=== PATIENT | female | born 1970 | race Caucasian/White ===

== ENCOUNTER 2021-06-18 16:05 | Outpatient (REF) | payer OTHER, SELFPAY ==
[2021-06-20 00:46] LABS: COVID-19 RT-PCR UVMMC Result Negative (Negative)
== END 2021-06-18 16:06 | disposition home or self-care (01) ==
LOC: LBN 16:05
PROVIDERS: PCP Orthopaedic Surgery; Visit Provider Physician Assistant
DX: Z20.822 Contact with and (suspected) exposure to COVID-19 (principal); J02.9 Acute pharyngitis, unspecified
CPT/HCPCS: U0003

== ENCOUNTER 2022-03-06 00:12 | Outpatient (CLI) | payer OTHER, SELFPAY ==
--- NOTE | 2022-03-06 15:00 | ETT_ITS ---
APPROVED REPORT Exam: Exercise Treadmill Patient Location: Out-Patient Room/Bed: Stress Nurse: Sujatha Tsai RN Ordering Provider:DARI ZAMBRANO, Contact Number: [phone] BMI: 20.19 Baseline Rhythm: Sinus Rhythm Comment: Baseline t-wave inversions in V2 Indications: Atypical chest pain Medical History Medical History: heart murmur, vertigo Cardiac Medications: none Allergies: sulfa antibiotics Cardiac Risk Factors: family history Previous Cardiac Procedures: none Pretest Chest Pain Characteristics: none Exercise History: Physically active Physical Disabilities: none Lung Sounds: clear Heart Sounds: regular, murmur (left 6th ics) Stress Test Details Test: Exercise stress testing was performed using a Shola protocol. Rest Stress HR Resting HR Supine: 61 bpm Max Heart Rate (APMHR): 169 bpm Resting HR Standin bpm Target HR (85% APMHR): 143 bpm Max HR Achieved: 164 bpm % of APMHR: 97 Recovery HR: 79 bpm HR response to stress: Normal HR response to stress BP Resting BP Supine: 118/64 mmHg Resting BP Standin/72 mmHg Max BP: 138/72 mmHg Recovery BP: 114/70 mmHg BP response to stress: Normal blood pressure response to stress. ECG Resting ECG: Sinus Rhythm Ectopy: none Comment: inverted t wave in v2 Stress ECG: Sinus Tachycardia ST Change: No significant ST segment changes noted Arrhythmia: rare PAC, rare PVC Recovery ECG: Clear, Sinus Rhythm Recovery ST Change: No significant ST segment changes noted Recovery Arrhythmia: none Clinical Reason for Termination: Stopped by RN due to significant artifact and difficulty with interpretting E KG Stress Symptoms: None Exercise duration: 9 min29 sec Highest Stage Reached: Stage 4: 4.2 mph at 16% grade. Exercise capacity: 10.95 METs De Souza Treadmill Score: 8.1 Rate Pressure Product: [id number] Stress ECG Conclusion 1. The resting electrocardiogram showed nondiagnostic anterior T abnormalities 2. Patient exercised on the Shola protocol and completed a workload of 10.95 METS, stopping due to fa tigue 3. Normal heart rate and blood pressure response to exercise. Patient achieved 97% of predicted hear t rate for age 4. There was no electrocardiographic evidence of myocardial ischemia 5. There were no significant dysrhythmias De Souza Treadmill Score is 8.1 which is Low risk. Stress Test Summary STAGE Time (mins) Speed (mph) Grade (%) HR BP SYMPTOMS METS Supine 61 118/64 SP02 99% Standing 62 120/72 SP02 98% 1 3 1.7 10 112 118/68 SP02 98% 4.6 2 6 2.5 12 141 122/70 SP02 81% 7 3 9 3.4 14 156 132/74 SP02 87% 10.2 4 12 4.2 16 160 12.9 1 min recovery 114 128/58 SP02 97% 3 min recovery 79 138/72 SP02 97% 6 min recovery 79 114/70 SP02 97%
== END 2022-03-06 00:32 ==
PROVIDERS: PCP Orthopaedic Surgery; Visit Provider Nurse Practitioner
DX: R07.89 Other chest pain (principal)
CPT/HCPCS: 93017

== ENCOUNTER 2024-05-20 01:57 | Outpatient (RCR) | payer OTHER, SELFPAY ==
[2024-05-20] MEDS: Normal Saline Flush 10 ML SYR IVP (08:08)
[2024-05-20 08:39] LABS: Abs Immature Grans 0.01 10^3/uL (0.0-0.06); Absolute Basophil Count 0.05 10^3/uL (0.0-0.2); Absolute Eosinophil Count 0.05 10^3/uL (0.0-0.7); Absolute Lymphocyte Count 1.47 10^3/uL (1.2-3.4); Absolute Monocyte Count 0.56 10^3/uL (0.1-0.8); Absolute Neutrophil Count 2.55 10^3/uL (1.2-6.7); Basophils % 1.1 %; Eosinophils % 1.1 %; HCT 30.6 % (36.0-46.0); HGB 10.2 g/dL (11.2-15.7); Immature Grans % 0.2 %; Lymphocytes % 31.3 %; MCH 30.1 pg (27.0-33.0); MCHC 33.3 % (32.0-36.0); MCV 90 fL (80-95); MPV 9.9 fL (8.0-11.0); Monocytes % 11.9 %; Neutrophils % 54.4 %; Platelet Count 274 10^3/uL (130-400); RBC 3.39 10^6/uL (3.93-5.22); RDW 13.7 % (11.7-14.6); WBC 4.69 10^3/uL (4.4-10.8)
[2024-05-20 08:54] LABS: ALT 95 U/L (14-59); AST 34 U/L (15-37); Albumin 3.6 g/dL (3.4-5.0); Alkaline Phosphatase 72 U/L (46-116); Anion Gap 7.1 mmol/L (3-11); BUN 13 mg/dL (7-18); Bilirubin, Total 0.59 mg/dL (0.2-1.0); CO2 27.9 mmol/L (21.0-32.0); CREATININE 0.9 mg/dL (0.55-1.02); Calcium 8.8 mg/dL (8.5-10.1); Chloride 107 mmol/L (98-107); Estimated GFR 75.97 (mL/min/1.73m2); Glucose 95 mg/dL (74-106); Potassium 3.7 mmol/L (3.5-5.1); Sodium 142 mmol/L (136-145); Total Protein 6.7 g/dL (6.4-8.2)
== END 2024-06-04 23:59 | disposition home or self-care (01) ==
LOC: INF 01:57
PROVIDERS: PCP Nurse Practitioner; Visit Provider Internal Medicine Hematology & Oncology
DX: C50.911 Malignant neoplasm of unspecified site of right female breast (principal); Z45.2 Encounter for adjustment and management of vascular access device
CPT/HCPCS: 36591; 80053; 85025

== ENCOUNTER 2024-07-01 02:34 | Outpatient (RCR) | payer OTHER, SELFPAY ==
[2024-06-10 09:02] LABS: Abs Immature Grans 0.01 10^3/uL (0.0-0.06); Absolute Basophil Count 0.03 10^3/uL (0.0-0.2); Absolute Lymphocyte Count 1.27 10^3/uL (1.2-3.4); Absolute Neutrophil Count 2.36 10^3/uL (1.2-6.7); Basophils % 0.7 %; HCT 29.9 % (36.0-46.0); Immature Grans % 0.2 %; Lymphocytes % 31.2 %; MCH 30.4 pg (27.0-33.0); MCHC 33.4 % (32.0-36.0); MCV 91 fL (80-95); MPV 9.9 fL (8.0-11.0); Monocytes % 9.8 %; Neutrophils % 58.1 %; Platelet Count 185 10^3/uL (130-400); RBC 3.29 10^6/uL (3.93-5.22); RDW 15.4 % (11.7-14.6); RDW-SD 49.1 fL; WBC 4.07 10^3/uL (4.4-10.8)
[2024-06-10] MEDS: Normal Saline Flush 10 ML SYR IVP (09:17)
[2024-06-10 09:18] LABS: ALT 69 U/L (14-59); AST 23 U/L (15-37); Albumin 3.5 g/dL (3.4-5.0); Alkaline Phosphatase 78 U/L (46-116); Anion Gap 6.3 mmol/L (3-11); BUN 11 mg/dL (7-18); Bilirubin, Total 0.56 mg/dL (0.2-1.0); CO2 27.7 mmol/L (21.0-32.0); CREATININE 0.8 mg/dL (0.55-1.02); Calcium 8.7 mg/dL (8.5-10.1); Chloride 109 mmol/L (98-107); Glucose 110 mg/dL (74-106); Potassium 3.7 mmol/L (3.5-5.1); Sodium 143 mmol/L (136-145); Total Protein 6.5 g/dL (6.4-8.2)
[2024-07-01] MEDS: Normal Saline Flush 10 ML SYR IVP (09:39)
[2024-07-01 10:04] LABS: HCT 26.9 % (36.0-46.0); HGB 8.9 g/dL (11.2-15.7); MCH 31.9 pg (27.0-33.0); MCHC 33.1 % (32.0-36.0); MCV 96 fL (80-95); MPV 9.9 fL (8.0-11.0); Neutrophils % 66.5 %; Platelet Count 148 10^3/uL (130-400); RBC 2.79 10^6/uL (3.93-5.22); RDW 17.2 % (11.7-14.6); RDW-SD 58.8 fL; WBC 3.83 10^3/uL (4.4-10.8)
[2024-07-01 10:05] LABS: Abs Immature Grans 0.01 10^3/uL (0.0-0.06); Absolute Basophil Count 0.03 10^3/uL (0.0-0.2); Absolute Lymphocyte Count 0.87 10^3/uL (1.2-3.4); Absolute Monocyte Count 0.37 10^3/uL (0.1-0.8); Absolute Neutrophil Count 2.55 10^3/uL (1.2-6.7); Basophils % 0.8 %; Immature Grans % 0.3 %; Lymphocytes % 22.7 %; Monocytes % 9.7 %
[2024-07-01 10:22] LABS: Diff Comment Diff Reviewed; Hypochromasia 2+
[2024-07-01 10:24] LABS: ALT 79 U/L (14-59); AST 37 U/L (15-37); Albumin 3.7 g/dL (3.4-5.0); Alkaline Phosphatase 81 U/L (46-116); Anion Gap 7.1 mmol/L (3-11); BUN 17 mg/dL (7-18); Bilirubin, Total 0.69 mg/dL (0.2-1.0); CO2 28.9 mmol/L (21.0-32.0); CREATININE 0.8 mg/dL (0.55-1.02); Calcium 8.6 mg/dL (8.5-10.1); Chloride 106 mmol/L (98-107); Glucose 116 mg/dL (74-106); Potassium 3.8 mmol/L (3.5-5.1); Sodium 142 mmol/L (136-145); Total Protein 6.6 g/dL (6.4-8.2)
== END 2024-07-05 23:59 | disposition home or self-care (01) ==
LOC: INF 02:34
PROVIDERS: PCP Nurse Practitioner; Visit Provider Internal Medicine Hematology & Oncology
DX: C50.911 Malignant neoplasm of unspecified site of right female breast (principal)
CPT/HCPCS: 36591; 80053; 85025

== ENCOUNTER 2024-07-22 01:39 | Outpatient (RCR) | payer OTHER, SELFPAY ==
[2024-07-22 09:18] LABS: Abs Immature Grans 0.01 10^3/uL (0.0-0.06); Absolute Basophil Count 0.01 10^3/uL (0.0-0.2); Absolute Lymphocyte Count 1.15 10^3/uL (1.2-3.4); Absolute Monocyte Count 0.38 10^3/uL (0.1-0.8); Absolute Neutrophil Count 2.19 10^3/uL (1.2-6.7); Basophils % 0.3 %; HCT 25.3 % (36.0-46.0); HGB 8.3 g/dL (11.2-15.7); Immature Grans % 0.3 %; Lymphocytes % 30.7 %; MCH 33.9 pg (27.0-33.0); MCHC 32.8 % (32.0-36.0); MCV 103 fL (80-95); MPV 10.2 fL (8.0-11.0); Monocytes % 10.2 %; Neutrophils % 58.5 %; Platelet Count 146 10^3/uL (130-400); RBC 2.45 10^6/uL (3.93-5.22); RDW 19.5 % (11.7-14.6); RDW-SD 74.1 fL; WBC 3.74 10^3/uL (4.4-10.8)
[2024-07-22 09:36] LABS: ALT 75 U/L (14-59); AST 37 U/L (15-37); Albumin 3.5 g/dL (3.4-5.0); Alkaline Phosphatase 78 U/L (46-116); Anion Gap 6.1 mmol/L (3-11); BUN 14 mg/dL (7-18); Bilirubin, Total 0.43 mg/dL (0.2-1.0); CO2 28.9 mmol/L (21.0-32.0); CREATININE 0.7 mg/dL (0.55-1.02); Calcium 8.4 mg/dL (8.5-10.1); Chloride 107 mmol/L (98-107); Estimated GFR 102.71 (mL/min/1.73m2); Glucose 90 mg/dL (74-106); Potassium 3.9 mmol/L (3.5-5.1); Sodium 142 mmol/L (136-145); Total Protein 6.1 g/dL (6.4-8.2)
[2024-07-22] MEDS: Normal Saline Flush 10 ML SYR IVP (10:08)
== END 2024-08-04 23:59 | disposition home or self-care (01) ==
LOC: INF 01:39
PROVIDERS: PCP Nurse Practitioner; Visit Provider Nurse Practitioner Family
DX: C50.911 Malignant neoplasm of unspecified site of right female breast (principal)
CPT/HCPCS: 36591; 80053; 85025

== ENCOUNTER 2024-09-04 02:35 | Outpatient (RCR) | payer OTHER, SELFPAY ==
[2024-08-12] MEDS: Normal Saline Flush 10 ML SYR IVP (08:36)
[2024-08-12 08:40] LABS: Abs Immature Grans 0.01 10^3/uL (0.0-0.06); Absolute Basophil Count 0.01 10^3/uL (0.0-0.2); Absolute Lymphocyte Count 1.12 10^3/uL (1.2-3.4); Absolute Neutrophil Count 1.37 10^3/uL (1.2-6.7); Basophils % 0.4 %; HCT 24.6 % (36.0-46.0); HGB 7.9 g/dL (11.2-15.7); Immature Grans % 0.4 %; Lymphocytes % 39.9 %; MCH 35.4 pg (27.0-33.0); MCHC 32.1 % (32.0-36.0); MCV 110 fL (80-95); MPV 10.2 fL (8.0-11.0); Monocytes % 10.7 %; Neutrophils % 48.6 %; Platelet Count 126 10^3/uL (130-400); RBC 2.23 10^6/uL (3.93-5.22); RDW 19.1 % (11.7-14.6); RDW-SD 78.2 fL; WBC 2.81 10^3/uL (4.4-10.8)
[2024-08-12 08:58] LABS: Diff Comment RBC Morph Reviewed; Macrocytosis 2+; Polychromasia Present
[2024-08-12 08:59] LABS: ALT 76 U/L (14-59); AST 34 U/L (15-37); Albumin 3.3 g/dL (3.4-5.0); Alkaline Phosphatase 78 U/L (46-116); Anion Gap 6.5 mmol/L (3-11); BUN 11 mg/dL (7-18); Bilirubin, Total 0.57 mg/dL (0.2-1.0); CO2 30.5 mmol/L (21.0-32.0); CREATININE 0.8 mg/dL (0.55-1.02); Calcium 8.7 mg/dL (8.5-10.1); Chloride 111 mmol/L (98-107); Glucose 98 mg/dL (74-106); Potassium 3.5 mmol/L (3.5-5.1); Sodium 148 mmol/L (136-145); Total Protein 6.1 g/dL (6.4-8.2)
[2024-08-20 13:36] LABS: Abs Immature Grans 0.04 10^3/uL (0.0-0.06); Absolute Basophil Count 0.03 10^3/uL (0.0-0.2); Absolute Eosinophil Count 0.01 10^3/uL (0.0-0.7); Absolute Lymphocyte Count 1.36 10^3/uL (1.2-3.4); Absolute Monocyte Count 0.76 10^3/uL (0.1-0.8); Absolute Neutrophil Count 3.79 10^3/uL (1.2-6.7); Basophils % 0.5 %; Eosinophils % 0.2 %; HGB 7.5 g/dL (11.2-15.7); Immature Grans % 0.7 %; Lymphocytes % 22.7 %; MCH 36.1 pg (27.0-33.0); MCHC 32.6 % (32.0-36.0); MCV 111 fL (80-95); MPV 11.6 fL (8.0-11.0); Monocytes % 12.7 %; Neutrophils % 63.2 %; Platelet Count 104 10^3/uL (130-400); RBC 2.08 10^6/uL (3.93-5.22); RDW 16.4 % (11.7-14.6); RDW-SD 67.5 fL; WBC 5.99 10^3/uL (4.4-10.8)
[2024-08-20] MEDS: Normal Saline Flush 10 ML SYR IVP (13:43)
[2024-08-20 13:51] LABS: ALT 70 U/L (14-59); AST 25 U/L (15-37); Albumin 3.5 g/dL (3.4-5.0); Alkaline Phosphatase 82 U/L (46-116); Anion Gap 6.5 mmol/L (3-11); BUN 12 mg/dL (7-18); Bilirubin, Total 0.29 mg/dL (0.2-1.0); CO2 29.5 mmol/L (21.0-32.0); CREATININE 0.8 mg/dL (0.55-1.02); Chloride 107 mmol/L (98-107); Glucose 115 mg/dL (74-106); Potassium 3.7 mmol/L (3.5-5.1); Sodium 143 mmol/L (136-145); Total Protein 6.4 g/dL (6.4-8.2)
[2024-08-20 14:20] LABS: Diff Comment RBC Morph Reviewed
[2024-08-20 14:21] LABS: Macrocytosis 2+; Polychromasia Present
[2024-08-21] MEDS: Normal Saline Flush 10 ML SYR IVP (11:16)
[2024-08-21 11:42] VITALS: BP 110/72; PULSE 78; RESP 17; TEMP 36.6; O2SAT 100
[2024-08-21 11:55] VITALS: BP 105/70; PULSE 74; RESP 16; TEMP 36.4; O2SAT 100
[2024-08-21 12:10] VITALS: BP 115/68; PULSE 73; RESP 16; TEMP 36.4; O2SAT 100
[2024-08-21 12:40] VITALS: BP 110/69; PULSE 73; RESP 16; TEMP 36.5; O2SAT 100
[2024-08-21 13:40] VITALS: BP 109/69; PULSE 88; RESP 16; TEMP 36.5; O2SAT 100
[2024-09-04] MEDS: Normal Saline Flush 10 ML SYR IVP (12:10)
[2024-09-04 12:19] LABS: Abs Immature Grans 0.01 10^3/uL (0.0-0.06); Absolute Basophil Count 0.02 10^3/uL (0.0-0.2); Absolute Eosinophil Count 0.01 10^3/uL (0.0-0.7); Absolute Lymphocyte Count 1.21 10^3/uL (1.2-3.4); Absolute Neutrophil Count 1.81 10^3/uL (1.2-6.7); Basophils % 0.6 %; Eosinophils % 0.3 %; HCT 26.3 % (36.0-46.0); HGB 8.9 g/dL (11.2-15.7); Immature Grans % 0.3 %; MCH 35.9 pg (27.0-33.0); MCHC 33.8 % (32.0-36.0); MCV 106 fL (80-95); MPV 10.1 fL (8.0-11.0); Monocytes % 11.6 %; Neutrophils % 52.2 %; Platelet Count 155 10^3/uL (130-400); RBC 2.48 10^6/uL (3.93-5.22); RDW 18.9 % (11.7-14.6); RDW-SD 74.3 fL; WBC 3.46 10^3/uL (4.4-10.8)
[2024-09-04 12:59] LABS: ALT 52 U/L (14-59); AST 29 U/L (15-37); Albumin 3.2 g/dL (3.4-5.0); Alkaline Phosphatase 69 U/L (46-116); Anion Gap 6.7 mmol/L (3-11); BUN 10 mg/dL (7-18); Bilirubin, Total 0.43 mg/dL (0.2-1.0); CO2 29.3 mmol/L (21.0-32.0); CREATININE 0.8 mg/dL (0.55-1.02); Calcium 8.4 mg/dL (8.5-10.1); Chloride 109 mmol/L (98-107); Glucose 101 mg/dL (74-106); Potassium 3.8 mmol/L (3.5-5.1); Sodium 145 mmol/L (136-145); Total Protein 5.9 g/dL (6.4-8.2)
== END 2024-09-04 23:59 | disposition home or self-care (01) ==
LOC: INF 02:35
PROVIDERS: Internal Medicine Hematology & Oncology; PCP Nurse Practitioner; Visit Provider Nurse Practitioner Family
DX: C50.911 Malignant neoplasm of unspecified site of right female breast (principal); R11.2 Nausea with vomiting, unspecified; T45.1X5A Adverse effect of antineoplastic and immunosuppressive drugs, initial encounter; D64.9 Anemia, unspecified; Z45.2 Encounter for adjustment and management of vascular access device
CPT/HCPCS: 36430; 36591; 80053; 86850; 86900; 86901; 86920; 96523; 85025; P9016

== ENCOUNTER 2024-09-24 02:07 | Outpatient (RCR) | payer OTHER, SELFPAY ==
[2024-09-05 00:28] VITALS: BP 109/69; PULSE 88; RESP 16; TEMP 36.5
[2024-09-24] MEDS: Normal Saline Flush 10 ML SYR IVP (09:30)
[2024-09-24 09:53] LABS: Absolute Basophil Count 0.05 10^3/uL (0.0-0.2); Absolute Eosinophil Count 0.19 10^3/uL (0.0-0.7); Absolute Lymphocyte Count 1.13 10^3/uL (1.2-3.4); Absolute Monocyte Count 0.33 10^3/uL (0.1-0.8); Absolute Neutrophil Count 1.16 10^3/uL (1.2-6.7); Basophils % 1.7 %; Eosinophils % 6.6 %; HCT 30.1 % (36.0-46.0); HGB 9.9 g/dL (11.2-15.7); Lymphocytes % 39.5 %; MCH 34.5 pg (27.0-33.0); MCHC 32.9 % (32.0-36.0); MCV 105 fL (80-95); Monocytes % 11.5 %; Neutrophils % 40.7 %; Platelet Count 188 10^3/uL (130-400); RBC 2.87 10^6/uL (3.93-5.22); RDW 15.1 % (11.7-14.6); RDW-SD 58.8 fL; WBC 2.86 10^3/uL (4.4-10.8)
[2024-09-24 10:11] LABS: ALT 33 U/L (14-59); AST 18 U/L (15-37); Albumin 3.7 g/dL (3.4-5.0); Alkaline Phosphatase 72 U/L (46-116); Anion Gap 6.7 mmol/L (3-11); BUN 13 mg/dL (7-18); CO2 28.3 mmol/L (21.0-32.0); CREATININE 0.9 mg/dL (0.55-1.02); Calcium 8.9 mg/dL (8.5-10.1); Chloride 110 mmol/L (98-107); Estimated GFR 75.97 (mL/min/1.73m2); Glucose 102 mg/dL (74-106); Potassium 3.6 mmol/L (3.5-5.1); Sodium 145 mmol/L (136-145); Total Protein 6.5 g/dL (6.4-8.2)
== END 2024-10-04 23:59 | disposition home or self-care (01) ==
LOC: INF 02:07
PROVIDERS: PCP Nurse Practitioner; Visit Provider Nurse Practitioner Family
DX: R11.2 Nausea with vomiting, unspecified; T45.1X5A Adverse effect of antineoplastic and immunosuppressive drugs, initial encounter; Z45.2 Encounter for adjustment and management of vascular access device
CPT/HCPCS: 36591; 80053; 96523; 85025

== ENCOUNTER 2024-10-16 03:06 | Outpatient (RCR) | payer OTHER, SELFPAY ==
[2024-10-05 00:11] VITALS: BP 109/69; PULSE 88; RESP 16; TEMP 36.5
[2024-10-16 09:17] LABS: Abs Immature Grans 0.01 10^3/uL (0.0-0.06); Absolute Basophil Count 0.02 10^3/uL (0.0-0.2); Absolute Lymphocyte Count 0.97 10^3/uL (1.2-3.4); Absolute Monocyte Count 0.28 10^3/uL (0.1-0.8); Absolute Neutrophil Count 1.66 10^3/uL (1.2-6.7); Basophils % 0.6 %; Eosinophils % 6.4 %; HCT 28.4 % (36.0-46.0); HGB 9.4 g/dL (11.2-15.7); Immature Grans % 0.3 %; Lymphocytes % 30.9 %; MCH 33.9 pg (27.0-33.0); MCHC 33.1 % (32.0-36.0); MCV 103 fL (80-95); MPV 9.8 fL (8.0-11.0); Monocytes % 8.9 %; Neutrophils % 52.9 %; Platelet Count 230 10^3/uL (130-400); RBC 2.77 10^6/uL (3.93-5.22); RDW 13.2 % (11.7-14.6); RDW-SD 49.2 fL; WBC 3.14 10^3/uL (4.4-10.8)
[2024-10-16 09:42] LABS: ALT 34 U/L (14-59); AST 22 U/L (15-37); Albumin 3.7 g/dL (3.4-5.0); Alkaline Phosphatase 77 U/L (46-116); BUN 19 mg/dL (7-18); Bilirubin, Total 0.82 mg/dL (0.2-1.0); CREATININE 0.9 mg/dL (0.55-1.02); Chloride 109 mmol/L (98-107); Estimated GFR 75.97 (mL/min/1.73m2); Glucose 112 mg/dL (74-106); Potassium 3.6 mmol/L (3.5-5.1); Sodium 145 mmol/L (136-145); Total Protein 6.8 g/dL (6.4-8.2)
== END 2024-11-04 23:59 | disposition home or self-care (01) ==
LOC: INF 03:06
PROVIDERS: PCP Nurse Practitioner; Visit Provider Nurse Practitioner Family
DX: C50.911 Malignant neoplasm of unspecified site of right female breast (principal); Z45.2 Encounter for adjustment and management of vascular access device
CPT/HCPCS: 36591; 80053; 85025

== ENCOUNTER 2024-10-30 00:04 | Outpatient (CLI) | payer OTHER, SELFPAY ==
--- NOTE | 2024-10-30 08:30 | DI.US_ITS ---
APPROVED REPORT EXAM: Comprehensive 2D, Doppler, and color-flow Echocardiogram Patient Location: Out-Patient Global Professional: Brock Hall RDCS (AE) Indications: Chemo Conclusion Normal left ventricular wall thickness and chamber size. Ejection fraction is 55%. Wall motion is n ormal Normal right ventricular size and function Both atria are normal in size Trileaflet aortic valve with trace regurgitation Mild mitral and tricuspid regurgitation Estimated right ventricular systolic pressure is 27 mmHg Wall motion Left Ventricle The left ventricle is normal size. The overall left ventricular systolic function appears normal. The re is normal left ventricular wall thickness. No segmental wall motion abnormalities There is no vent ricular septal defect visualized. LVEF is 55%. Right Ventricle The right ventricle is normal size. The right ventricular systolic function is normal. Atria The left atrium size is normal. The right atrium size is normal. Atrial septum is thin Aortic Valve The aortic valve is normal in structure. Aortic valve is trileaflet. There is no aortic valvular sten osis. Trace aortic regurgitation. Mitral Valve The mitral valve is normal in structure. No evidence of mitral valve stenosis. Mild mitral regurgitat ion. Tricuspid Valve The tricuspid valve is normal in structure. There is no tricuspid valve stenosis. Mild tricuspid regu rgitation. The RVSP is 26.7 mmHg. Pulmonic Valve The pulmonary valve is normal in structure. There is no pulmonic valvular stenosis. Mild to moderate pulmonic regurgitation. Great Vessels The aortic root is normal in size. Ascending aorta is not well visualized. Aortic arch is not well vi sualized. IVC is normal in size and collapses >50% with inspiration. Pericardium There is no pericardial effusion. 2D Dimensions IVSD d PLAX 0.75 cm F: 0.6-1.0 Ao Root d 2.76 cm F: 2.7 - 3.3 LVPW d PLAX 0.80 cm F: 0.6 - 1.0 LVID d PLAX 4.23 cm F: 3.8 - 5.2 LVDs 3.02 cm F: 2.2 - 3.5 LV EF Teichholz 55.6 % FS 28.67 % LV EDV (Teich) 79.9 mL LV ESV (Teich) 35.5 mL Stroke Vol Index (Teich) 33.40 M-Mode TAPSE 1.88 cm (M/F) >1.7 Auto EF LV EDV A4C 83.4 mL LV EDV A2C 81.2 mL LV EDV BP 83.4 mL LV ESV A4C 39.9 mL LV ESV A2C 40.5 mL LV ESV BP 40.2 mL LVEF(%) A4C 52.2 % LVEF(%) A2C 50.1 % LVEF(%) BP 51.7 % LV SV A4C 43.5 ml LV SV A2C 40.7 ml LV SV BP 43.1 ml LV CO A4C 2.8 L/min LV CO A2C 2.7 L/min LV CO BP 2.7 L/min HR A4C 64.98 BPM HR A2C 65.22 BPM LV EDV Index (BP) LV Strain Long Pk Overal Avg (s) 17.42 LA Volume LA Length A4C 4.8 cm LA Length A2C 3.6 cm LA Area A4C s 11.22 cm2 LA Area A2C s 8.56 cm2 LA Vol A4C A-L 22.37 mL LA Vol A2C A-L 17.11 mL LA Vol Biplane A-L 22.4 mL LA Vol/BSA A4C A-L LA Vol/BSA A2C A-L LA Vol/BSA BP A-L 16.8 mL/m2 LA Vol A4C MOD 20.8 mL LA Vol A2C MOD 15.0 mL LA Vol BP MOD 20.1 mL RA Volume RA Area A4C 7.1 cm2 RA ESV A4C (A-L) 10.9mL RA Vol/BSA A4C A-L RA Length A4C 4.0 cm RA ESV A4C (MOD) 10.3mL LV Diastology MV E' medial 0.113 (>0.07 m/s) MV E Vmax 0.78 (0.4-1.3 m/s) MV E/E' MED 6.92 (<14) MV A Vmax 0.60 (0.4-1.3 m/s) MV E' lateral 0.127 (>0.1 m/s) E/A Ratio 1.3 MV E/E' LAT 6.17 (<14) MV E' Average 0.120 m/s MV E/E'(average) 6.53 Aortic Valve AoV Vmax 1.31 m/s LVOT Vmax 0.85 m/s AoV Peak Grad 6.9 mmHg LVOT Peak Grad 2.9 mmHg AoV Area (Vmax) 1.54 cm2 LVOT VTI 0.186 m AoV VTI 0.298 m LVOT Mean Grad 1.3 mmHg AoV Mean Ottoniel. 0.87 m/s LVOT SV 44.12 mL AoV Mean Grad 3.5 mmHg LVOT Diam s 1.70 cm AoV Area (VTI) 1.48 cm2 AV Regurg Peak Gr. 6.89 mmHg Velocity Ratio 0.65 Mitral Valve MV DT 171 (160-240 msec) Pulmonary Valve PV Vmax 0.84 (0.5-1.5 m/s) RVOT Vmax 0.82 m/s PV Peak Grad 2.8 mmHg RVOT Peak Gr. 2.7 mmHg PV Mean Ottoniel 0.65 m/s RVOT VTI 0.195 m PV Mean Grad 1.8 mmHg RVOT Mean Gr. 1.5 mmHg Tricuspid Valve RA Pressure 3.00 mmHg TR Vmax 2.43 m/s TR Peak Grad 23.6 mmHg RVSP (TR) 26.7 mmHg
== END 2024-10-30 00:24 ==
LOC: DI 00:04
PROVIDERS: PCP Nurse Practitioner; Visit Provider Internal Medicine Medical Oncology
CPT/HCPCS: 93306

== ENCOUNTER 2024-11-27 03:37 | Outpatient (RCR) | payer OTHER, SELFPAY ==
[2024-11-05 00:08] VITALS: BP 109/69; PULSE 88; RESP 16; TEMP 36.5
[2024-11-07] MEDS: Normal Saline Flush 10 ML SYR IVP (09:50)
[2024-11-07 10:04] LABS: Absolute Basophil Count 0.02 10^3/uL (0.0-0.2); Absolute Eosinophil Count 0.05 10^3/uL (0.0-0.7); Absolute Lymphocyte Count 1.18 10^3/uL (1.2-3.4); Absolute Neutrophil Count 1.83 10^3/uL (1.2-6.7); Basophils % 0.6 %; Eosinophils % 1.5 %; HCT 31.2 % (36.0-46.0); HGB 10.4 g/dL (11.2-15.7); MCH 32.8 pg (27.0-33.0); MCHC 33.3 % (32.0-36.0); MCV 98 fL (80-95); MPV 10.1 fL (8.0-11.0); Monocytes % 6.1 %; Neutrophils % 55.8 %; Platelet Count 182 10^3/uL (130-400); RBC 3.17 10^6/uL (3.93-5.22); RDW 12.1 % (11.7-14.6); RDW-SD 44.1 fL; WBC 3.28 10^3/uL (4.4-10.8)
[2024-11-07 10:18] LABS: ALT 30 U/L (14-59); AST 16 U/L (15-37); Albumin 3.5 g/dL (3.4-5.0); Alkaline Phosphatase 69 U/L (46-116); Anion Gap 6.8 mmol/L (3-11); BUN 15 mg/dL (7-18); Bilirubin, Total 0.68 mg/dL (0.2-1.0); CO2 30.2 mmol/L (21.0-32.0); CREATININE 0.9 mg/dL (0.55-1.02); Calcium 9.1 mg/dL (8.5-10.1); Chloride 108 mmol/L (98-107); Estimated GFR 75.97 (mL/min/1.73m2); Glucose 133 mg/dL (74-106); Potassium 3.4 mmol/L (3.5-5.1); Sodium 145 mmol/L (136-145); Total Protein 6.4 g/dL (6.4-8.2)
[2024-11-27] MEDS: Normal Saline Flush 10 ML SYR IVP (12:20)
[2024-11-27 12:21] LABS: Abs Immature Grans 0.01 10^3/uL (0.0-0.06); Absolute Basophil Count 0.02 10^3/uL (0.0-0.2); Absolute Eosinophil Count 0.09 10^3/uL (0.0-0.7); Absolute Lymphocyte Count 1.09 10^3/uL (1.2-3.4); Absolute Monocyte Count 0.26 10^3/uL (0.1-0.8); Absolute Neutrophil Count 1.39 10^3/uL (1.2-6.7); Basophils % 0.7 %; Eosinophils % 3.1 %; HCT 34.8 % (36.0-46.0); HGB 11.4 g/dL (11.2-15.7); Immature Grans % 0.3 %; Lymphocytes % 38.1 %; MCH 31.8 pg (27.0-33.0); MCHC 32.8 % (32.0-36.0); MCV 97 fL (80-95); MPV 9.5 fL (8.0-11.0); Monocytes % 9.1 %; Neutrophils % 48.7 %; Platelet Count 162 10^3/uL (130-400); RBC 3.58 10^6/uL (3.93-5.22); RDW 11.8 % (11.7-14.6); RDW-SD 42.3 fL; WBC 2.86 10^3/uL (4.4-10.8)
[2024-11-27 12:36] LABS: ALT 54 U/L (14-59); AST 29 U/L (15-37); Albumin 3.9 g/dL (3.4-5.0); Alkaline Phosphatase 71 U/L (46-116); Anion Gap 3.7 mmol/L (3-11); BUN 12 mg/dL (7-18); Bilirubin, Total 0.68 mg/dL (0.2-1.0); CO2 31.3 mmol/L (21.0-32.0); CREATININE 0.8 mg/dL (0.55-1.02); Calcium 9.4 mg/dL (8.5-10.1); Chloride 108 mmol/L (98-107); Glucose 92 mg/dL (74-106); Sodium 143 mmol/L (136-145); Total Protein 7.1 g/dL (6.4-8.2)
== END 2024-12-05 23:59 | disposition home or self-care (01) ==
LOC: INF 03:37
PROVIDERS: PCP Nurse Practitioner; Visit Provider Nurse Practitioner Family
DX: C50.919 Malignant neoplasm of unspecified site of unspecified female breast (principal); R11.2 Nausea with vomiting, unspecified; T45.1X5A Adverse effect of antineoplastic and immunosuppressive drugs, initial encounter; D64.9 Anemia, unspecified
CPT/HCPCS: 36591; 80053; 86850; 86900; 86901; 85025

== ENCOUNTER 2024-12-05 10:08 | Outpatient (CLI) | payer OTHER, SELFPAY ==
[2024-12-05 09:57] LABS: Abs Immature Grans 0.01 10^3/uL (0.0-0.06); Absolute Basophil Count 0.02 10^3/uL (0.0-0.2); Absolute Eosinophil Count 0.13 10^3/uL (0.0-0.7); Absolute Lymphocyte Count 1.13 10^3/uL (1.2-3.4); Absolute Monocyte Count 0.36 10^3/uL (0.1-0.8); Absolute Neutrophil Count 1.27 10^3/uL (1.2-6.7); Basophils % 0.7 %; Eosinophils % 4.5 %; HCT 38.2 % (36.0-46.0); HGB 12.5 g/dL (11.2-15.7); Immature Grans % 0.3 %; Lymphocytes % 38.7 %; MCH 31.6 pg (27.0-33.0); MCHC 32.7 % (32.0-36.0); MCV 97 fL (80-95); MPV 9.7 fL (8.0-11.0); Monocytes % 12.3 %; Neutrophils % 43.5 %; Platelet Count 180 10^3/uL (130-400); RBC 3.95 10^6/uL (3.93-5.22); RDW 11.5 % (11.7-14.6); RDW-SD 41.1 fL; WBC 2.92 10^3/uL (4.4-10.8)
== END 2024-12-05 10:09 | disposition home or self-care (01) ==
LOC: LBO 10:08
PROVIDERS: PCP Nurse Practitioner; Visit Provider Surgery
DX: C50.919 Malignant neoplasm of unspecified site of unspecified female breast (principal)
CPT/HCPCS: 36415; 85025

== ENCOUNTER 2024-12-18 03:04 | Outpatient (RCR) | payer OTHER, SELFPAY ==
[2024-12-18] MEDS: Normal Saline Flush 10 ML SYR IVP (08:49)
[2024-12-18 08:58] LABS: Absolute Basophil Count 0.01 10^3/uL (0.0-0.2); Absolute Eosinophil Count 0.12 10^3/uL (0.0-0.7); Absolute Lymphocyte Count 0.58 10^3/uL (1.2-3.4); Absolute Monocyte Count 0.34 10^3/uL (0.1-0.8); Absolute Neutrophil Count 1.24 10^3/uL (1.2-6.7); Basophils % 0.4 %; Eosinophils % 5.2 %; HCT 34.1 % (36.0-46.0); HGB 11.5 g/dL (11.2-15.7); Lymphocytes % 25.3 %; MCHC 33.7 % (32.0-36.0); MCV 95 fL (80-95); MPV 9.9 fL (8.0-11.0); Monocytes % 14.8 %; Neutrophils % 54.3 %; Platelet Count 142 10^3/uL (130-400); RBC 3.59 10^6/uL (3.93-5.22); RDW 11.7 % (11.7-14.6); RDW-SD 40.7 fL; WBC 2.29 10^3/uL (4.4-10.8)
[2024-12-18 09:30] LABS: ALT 36 U/L (14-59); AST 19 U/L (15-37); Albumin 3.7 g/dL (3.4-5.0); Alkaline Phosphatase 67 U/L (46-116); Anion Gap 7.5 mmol/L (3-11); BUN 12 mg/dL (7-18); Bilirubin, Total 0.66 mg/dL (0.2-1.0); CO2 29.5 mmol/L (21.0-32.0); CREATININE 0.9 mg/dL (0.55-1.02); Calcium 9.4 mg/dL (8.5-10.1); Chloride 108 mmol/L (98-107); Estimated GFR 75.97 (mL/min/1.73m2); Glucose 87 mg/dL (74-106); Sodium 145 mmol/L (136-145); Total Protein 6.9 g/dL (6.4-8.2)
== END 2025-01-02 23:59 | disposition home or self-care (01) ==
LOC: INF 03:04
PROVIDERS: PCP Nurse Practitioner; Visit Provider Nurse Practitioner Family
DX: C50.911 Malignant neoplasm of unspecified site of right female breast (principal)
CPT/HCPCS: 36591; 80053; 85025

== ENCOUNTER 2025-01-27 00:54 | Outpatient (CLI) | payer OTHER, SELFPAY ==
--- NOTE | 2025-01-27 10:45 | DI.US_ITS ---
APPROVED REPORT EXAM: Comprehensive 2D, Doppler, and color-flow Echocardiogram Patient Location: Out-Patient Claim Review Medical Director: Brock Hall RDCS (AE) Indications: Chemo Other Information Study Quality: Good Conclusion Normal left ventricular wall thickness and chamber size. Ejection fraction is 60%. Wall motion is n ormal Normal right ventricular size and function Both atria are normal in size There is no structural or hemodynamically significant valvular disease Estimated right ventricular systolic pressure is 24 mmHg Wall motion Left Ventricle The left ventricle is normal size. Left ventricular systolic function is normal. The left ventricular ejection fraction is within the normal range. There is normal left ventricular wall thickness. There is normal LV segmental wall motion. There is no ventricular septal defect visualized. LVEF is 60%. Right Ventricle The right ventricle is normal size. The right ventricular systolic function is normal. Atria The left atrium size is normal. The right atrium size is normal. The interatrial septum is intact wit h no evidence for an atrial septal defect. Aortic Valve The aortic valve is normal in structure. Aortic valve is trileaflet. There is no aortic valvular sten osis. No aortic regurgitation is present. Mitral Valve The mitral valve is normal in structure. No evidence of mitral valve stenosis. Trace mitral regurgita tion. Tricuspid Valve The tricuspid valve is normal in structure. There is no tricuspid valve stenosis. Trace tricuspid reg urgitation. The RVSP is 24 mmHg. Pulmonic Valve The pulmonary valve is normal in structure. There is no pulmonic valvular stenosis. There is no pulmo lorenzo valvular regurgitation. Great Vessels The aortic root is normal in size. Ascending aorta is not well visualized. Aortic arch is normal in c aliber. IVC is normal in size and collapses >50% with inspiration. Pericardium There is no pericardial effusion. 2D Dimensions IVSD d PLAX 0.67 cm F: 0.6-1.0 Ao Root d 2.48 cm F: 2.7 - 3.3 LVPW d PLAX 0.65 cm F: 0.6 - 1.0 LVID d PLAX 4.43 cm F: 3.8 - 5.2 LVDs 3.02 cm F: 2.2 - 3.5 LV EF Teichholz 60.1 % FS 31.85 % LV EDV (Teich) 88.9 mL LV ESV (Teich) 35.5 mL Stroke Vol Index (Teich) 40.80 M-Mode TAPSE 2.31 cm (M/F) >1.7 Auto EF LV EDV A4C 71.9 mL LV EDV A2C 82.4 mL LV EDV BP 77.5 mL LV ESV A4C 28.5 mL LV ESV A2C 37.0 mL LV ESV BP 32.3 mL LVEF(%) A4C 60.3 % LVEF(%) A2C 55.1 % LVEF(%) BP 58.4 % LV SV A4C 43.3 ml LV SV A2C 45.4 ml LV SV BP 45.2 ml LV CO A4C 2.3 L/min LV CO A2C 2.4 L/min LV CO BP 2.4 L/min HR A4C 53.96 BPM HR A2C 53.82 BPM LV EDV Index (BP) LV Strain Long Pk Overal Avg (s) 17.74 LA Volume LA Length A4C 3.7 cm LA Length A2C LA Area A4C s 8.33 cm2 LA Area A2C s LA Vol A4C A-L 15.98 mL LA Vol A2C A-L LA Vol Biplane A-L LA Vol A4C MOD 13.9 mL LA Vol A2C MOD LA Vol BP MOD RA Volume RA Area A4C 6.8 cm2 RA ESV A4C (A-L) 12.1mL RA Vol/BSA A4C A-L RA Length A4C 3.2 cm RA ESV A4C (MOD) 11.3mL LV Diastology MV E' medial 0.103 (>0.07 m/s) MV E Vmax 0.67 (0.4-1.3 m/s) MV E/E' MED 6.53 (<14) MV A Vmax 0.50 (0.4-1.3 m/s) MV E' lateral 0.140 (>0.1 m/s) E/A Ratio 1.3 MV E/E' LAT 4.80 (<14) MV E' Average 0.121 m/s MV E/E'(average) 5.53 Aortic Valve AoV Vmax 1.15 m/s LVOT Vmax 0.79 m/s AoV Peak Grad 5.3 mmHg LVOT Peak Grad 2.5 mmHg AoV Area (Vmax) 1.58 cm2 LVOT VTI 0.183 m AoV VTI 0.246 m LVOT Mean Grad 1.3 mmHg AoV Mean Ottoniel. 0.74 m/s LVOT SV 42.22 mL AoV Mean Grad 2.5 mmHg LVOT Diam s 1.70 cm AoV Area (VTI) 1.71 cm2 AV Regurg Peak Gr. 5.33 mmHg Velocity Ratio 0.69 Mitral Valve MV DT 168 (160-240 msec) Pulmonary Valve PV Vmax 0.77 (0.5-1.5 m/s) RVOT Vmax 0.91 m/s PV Peak Grad 2.4 mmHg RVOT Peak Gr. 3.3 mmHg PV Mean Ottoniel 0.57 m/s RVOT VTI 0.227 m PV Mean Grad 1.5 mmHg RVOT Mean Gr. 1.7 mmHg Tricuspid Valve RA Pressure 3.00 mmHg TR Vmax 2.30 m/s TV S' 0.13 m/s TR Peak Grad 21.1 mmHg RVSP (TR) 24.1 mmHg
== END 2025-01-27 01:14 ==
LOC: DI 00:54
PROVIDERS: PCP Nurse Practitioner; Visit Provider Internal Medicine Medical Oncology
DX: C50.911 Malignant neoplasm of unspecified site of right female breast (principal); Z79.899 Other long term (current) drug therapy
CPT/HCPCS: 93306

== ENCOUNTER 2025-01-29 02:21 | Outpatient (RCR) | payer OTHER, SELFPAY ==
[2025-01-08] MEDS: Normal Saline Flush 10 ML SYR IVP (12:19)
[2025-01-08 12:28] LABS: Absolute Basophil Count 0.02 10^3/uL (0.0-0.2); Absolute Lymphocyte Count 0.68 10^3/uL (1.2-3.4); Absolute Monocyte Count 0.31 10^3/uL (0.1-0.8); Absolute Neutrophil Count 1.53 10^3/uL (1.2-6.7); Basophils % 0.8 %; Eosinophils % 3.8 %; HCT 34.6 % (36.0-46.0); HGB 11.6 g/dL (11.2-15.7); Lymphocytes % 25.8 %; MCH 31.1 pg (27.0-33.0); MCHC 33.5 % (32.0-36.0); MCV 93 fL (80-95); MPV 9.6 fL (8.0-11.0); Monocytes % 11.7 %; Neutrophils % 57.9 %; Platelet Count 175 10^3/uL (130-400); RBC 3.73 10^6/uL (3.93-5.22); RDW-SD 41.1 fL; WBC 2.64 10^3/uL (4.4-10.8)
[2025-01-08 12:45] LABS: ALT 36 U/L (14-59); AST 17 U/L (15-37); Albumin 3.8 g/dL (3.4-5.0); Anion Gap 4.7 mmol/L (3-11); BUN 18 mg/dL (7-18); CO2 31.3 mmol/L (21.0-32.0); CREATININE 0.8 mg/dL (0.55-1.02); Calcium 9.5 mg/dL (8.5-10.1); Chloride 107 mmol/L (98-107); Glucose 93 mg/dL (74-106); Potassium 4.2 mmol/L (3.5-5.1); Sodium 143 mmol/L (136-145)
[2025-01-08 13:35] LABS: Alkaline Phosphatase 73 U/L (46-116); Bilirubin, Total 0.8 mg/dL (0.2-1.0); Total Protein 7.2 g/dL (6.4-8.2)
[2025-01-29 10:57] LABS: Abs Immature Grans 0.01 10^3/uL (0.0-0.06); Absolute Basophil Count 0.03 10^3/uL (0.0-0.2); Absolute Eosinophil Count 0.15 10^3/uL (0.0-0.7); Absolute Lymphocyte Count 0.76 10^3/uL (1.2-3.4); Absolute Monocyte Count 0.31 10^3/uL (0.1-0.8); Basophils % 1.1 %; Eosinophils % 5.3 %; HCT 34.1 % (36.0-46.0); HGB 11.4 g/dL (11.2-15.7); Immature Grans % 0.4 %; Lymphocytes % 26.9 %; MCH 31.1 pg (27.0-33.0); MCHC 33.4 % (32.0-36.0); MCV 93 fL (80-95); MPV 9.4 fL (8.0-11.0); Neutrophils % 55.3 %; Platelet Count 182 10^3/uL (130-400); RBC 3.66 10^6/uL (3.93-5.22); RDW 12.6 % (11.7-14.6); RDW-SD 43.6 fL; WBC 2.83 10^3/uL (4.4-10.8)
[2025-01-29] MEDS: Normal Saline Flush 10 ML SYR IVP (10:57)
[2025-01-29 11:04] LABS: Absolute Neutrophil Count 1.56 10^3/uL (1.2-6.7)
[2025-01-29 11:15] LABS: ALT 38 U/L (14-59); AST 18 U/L (15-37); Albumin 3.7 g/dL (3.4-5.0); Alkaline Phosphatase 71 U/L (46-116); BUN 15 mg/dL (7-18); Bilirubin, Total 0.8 mg/dL (0.2-1.0); CREATININE 0.7 mg/dL (0.55-1.02); Calcium 9.2 mg/dL (8.5-10.1); Chloride 110 mmol/L (98-107); Estimated GFR 102.71 (mL/min/1.73m2); Glucose 103 mg/dL (74-106); Potassium 3.7 mmol/L (3.5-5.1); Sodium 143 mmol/L (136-145)
== END 2025-02-02 23:59 | disposition home or self-care (01) ==
LOC: INF 02:21
PROVIDERS: PCP Nurse Practitioner; Visit Provider Nurse Practitioner Family
DX: C50.911 Malignant neoplasm of unspecified site of right female breast (principal)
CPT/HCPCS: 36591; 80053; 85025

== ENCOUNTER 2025-02-20 00:44 | Outpatient (RCR) | payer OTHER, SELFPAY ==
[2025-02-20] MEDS: Normal Saline Flush 10 ML SYR IVP (13:06)
[2025-02-20 13:12] LABS: Abs Immature Grans 0.01 10^3/uL (0.0-0.06); Absolute Basophil Count 0.03 10^3/uL (0.0-0.2); Absolute Eosinophil Count 0.12 10^3/uL (0.0-0.7); Absolute Lymphocyte Count 0.73 10^3/uL (1.2-3.4); Absolute Monocyte Count 0.33 10^3/uL (0.1-0.8); Absolute Neutrophil Count 2.16 10^3/uL (1.2-6.7); Basophils % 0.9 %; Eosinophils % 3.6 %; HCT 31.2 % (36.0-46.0); HGB 10.4 g/dL (11.2-15.7); Immature Grans % 0.3 %; Lymphocytes % 21.6 %; MCH 31.6 pg (27.0-33.0); MCHC 33.3 % (32.0-36.0); MCV 95 fL (80-95); MPV 9.7 fL (8.0-11.0); Monocytes % 9.8 %; Neutrophils % 63.8 %; Platelet Count 185 10^3/uL (130-400); RBC 3.29 10^6/uL (3.93-5.22); RDW 12.9 % (11.7-14.6); RDW-SD 44.6 fL; WBC 3.38 10^3/uL (4.4-10.8)
[2025-02-20 13:27] LABS: ALT 38 U/L (14-59); AST 19 U/L (15-37); Albumin 3.6 g/dL (3.4-5.0); Alkaline Phosphatase 71 U/L (46-116); Anion Gap 7.2 mmol/L (3-11); BUN 11 mg/dL (7-18); Bilirubin, Total 0.9 mg/dL (0.2-1.0); CO2 29.8 mmol/L (21.0-32.0); CREATININE 0.8 mg/dL (0.55-1.02); Calcium 9.2 mg/dL (8.5-10.1); Chloride 103 mmol/L (98-107); Glucose 96 mg/dL (74-106); Potassium 3.8 mmol/L (3.5-5.1); Sodium 140 mmol/L (136-145); Total Protein 6.8 g/dL (6.4-8.2)
== END 2025-03-04 23:59 | disposition home or self-care (01) ==
LOC: INF 00:44
PROVIDERS: PCP Nurse Practitioner; Visit Provider Nurse Practitioner Family
DX: C50.911 Malignant neoplasm of unspecified site of right female breast (principal)
CPT/HCPCS: 36591; 80053; 85025

== ENCOUNTER 2025-04-03 00:43 | Outpatient (RCR) | payer OTHER, SELFPAY ==
[2025-03-13] MEDS: Normal Saline Flush 10 ML SYR IVP (10:16)
[2025-03-13 10:19] LABS: Abs Immature Grans 0.01 10^3/uL (0.0-0.06); Absolute Basophil Count 0.03 10^3/uL (0.0-0.2); Absolute Eosinophil Count 0.17 10^3/uL (0.0-0.7); Absolute Lymphocyte Count 0.75 10^3/uL (1.2-3.4); Absolute Monocyte Count 0.39 10^3/uL (0.1-0.8); Basophils % 0.9 %; Eosinophils % 5.2 %; HCT 32.8 % (36.0-46.0); HGB 10.9 g/dL (11.2-15.7); Immature Grans % 0.3 %; Lymphocytes % 23.1 %; MCH 31.4 pg (27.0-33.0); MCHC 33.2 % (32.0-36.0); MCV 95 fL (80-95); MPV 9.2 fL (8.0-11.0); Neutrophils % 58.5 %; Platelet Count 238 10^3/uL (130-400); RBC 3.47 10^6/uL (3.93-5.22); RDW 12.7 % (11.7-14.6); RDW-SD 43.8 fL; WBC 3.24 10^3/uL (4.4-10.8)
[2025-03-13 10:39] LABS: ALT 33 U/L (14-59); AST 17 U/L (15-37); Albumin 3.5 g/dL (3.4-5.0); Alkaline Phosphatase 81 U/L (46-116); Anion Gap 4.6 mmol/L (3-11); BUN 14 mg/dL (7-18); Bilirubin, Total 0.7 mg/dL (0.2-1.0); CO2 30.4 mmol/L (21.0-32.0); CREATININE 0.7 mg/dL (0.55-1.02); Calcium 9.3 mg/dL (8.5-10.1); Chloride 106 mmol/L (98-107); Estimated GFR 102.71 (mL/min/1.73m2); Glucose 84 mg/dL (74-106); Sodium 141 mmol/L (136-145)
[2025-04-03] MEDS: Normal Saline Flush 10 ML SYR IVP (08:50)
[2025-04-03 08:57] LABS: Abs Immature Grans 0.01 10^3/uL (0.0-0.06); Absolute Basophil Count 0.02 10^3/uL (0.0-0.2); Absolute Eosinophil Count 0.12 10^3/uL (0.0-0.7); Absolute Monocyte Count 0.28 10^3/uL (0.1-0.8); Basophils % 0.7 %; Eosinophils % 4.2 %; HCT 31.9 % (36.0-46.0); HGB 10.6 g/dL (11.2-15.7); Immature Grans % 0.4 %; Lymphocytes % 24.7 %; MCH 31.5 pg (27.0-33.0); MCHC 33.2 % (32.0-36.0); MCV 95 fL (80-95); MPV 9.7 fL (8.0-11.0); Monocytes % 9.9 %; Neutrophils % 60.1 %; Platelet Count 206 10^3/uL (130-400); RBC 3.36 10^6/uL (3.93-5.22); RDW 12.3 % (11.7-14.6); WBC 2.83 10^3/uL (4.4-10.8)
[2025-04-03 09:14] LABS: ALT 28 U/L (14-59); AST 19 U/L (15-37); Albumin 3.4 g/dL (3.4-5.0); Alkaline Phosphatase 75 U/L (46-116); Anion Gap 6.9 mmol/L (3-11); BUN 12 mg/dL (7-18); Bilirubin, Total 0.6 mg/dL (0.2-1.0); CO2 29.1 mmol/L (21.0-32.0); CREATININE 0.9 mg/dL (0.55-1.02); Calcium 8.9 mg/dL (8.5-10.1); Chloride 105 mmol/L (98-107); Estimated GFR 75.97 (mL/min/1.73m2); Glucose 103 mg/dL (74-106); Sodium 141 mmol/L (136-145); Total Protein 6.6 g/dL (6.4-8.2)
== END 2025-04-04 23:59 | disposition home or self-care (01) ==
LOC: INF 00:43
PROVIDERS: PCP Nurse Practitioner; Visit Provider Nurse Practitioner Family
DX: C50.911 Malignant neoplasm of unspecified site of right female breast (principal); Z45.2 Encounter for adjustment and management of vascular access device
CPT/HCPCS: 36591; 80053; 85025

== ENCOUNTER 2025-04-24 00:58 | Outpatient (RCR) | payer OTHER, SELFPAY ==
[2025-04-24] MEDS: Normal Saline Flush 10 ML SYR IVP (10:36)
[2025-04-24 10:46] LABS: Absolute Basophil Count 0.03 10^3/uL (0.0-0.2); Absolute Eosinophil Count 0.09 10^3/uL (0.0-0.7); Absolute Lymphocyte Count 0.73 10^3/uL (1.2-3.4); Absolute Monocyte Count 0.33 10^3/uL (0.1-0.8); Absolute Neutrophil Count 1.93 10^3/uL (1.2-6.7); Eosinophils % 2.9 %; HGB 10.8 g/dL (11.2-15.7); Lymphocytes % 23.5 %; MCH 31.9 pg (27.0-33.0); MCHC 33.8 % (32.0-36.0); MCV 94 fL (80-95); MPV 9.6 fL (8.0-11.0); Monocytes % 10.6 %; Platelet Count 195 10^3/uL (130-400); RBC 3.39 10^6/uL (3.93-5.22); RDW-SD 41.3 fL; WBC 3.11 10^3/uL (4.4-10.8)
[2025-04-24 11:22] LABS: ALT 41 U/L (14-59); AST 20 U/L (15-37); Albumin 3.5 g/dL (3.4-5.0); Alkaline Phosphatase 78 U/L (46-116); Anion Gap 6.8 mmol/L (3-11); BUN 14 mg/dL (7-18); Bilirubin, Total 0.7 mg/dL (0.2-1.0); CO2 29.2 mmol/L (21.0-32.0); CREATININE 0.9 mg/dL (0.55-1.02); Calcium 8.9 mg/dL (8.5-10.1); Chloride 105 mmol/L (98-107); Estimated GFR 75.97 (mL/min/1.73m2); Glucose 97 mg/dL (74-106); Sodium 141 mmol/L (136-145); Total Protein 6.7 g/dL (6.4-8.2)
== END 2025-05-04 23:59 | disposition home or self-care (01) ==
LOC: INF 00:58
PROVIDERS: PCP Nurse Practitioner; Visit Provider Nurse Practitioner Family
DX: C50.911 Malignant neoplasm of unspecified site of right female breast (principal); Z45.2 Encounter for adjustment and management of vascular access device
CPT/HCPCS: 36591; 80053; 85025

== ENCOUNTER 2025-04-28 02:28 | Outpatient (CLI) | payer OTHER, SELFPAY ==
--- NOTE | 2025-04-28 12:30 | DI.US_ITS ---
APPROVED REPORT EXAM: Comprehensive 2D, Doppler, and color-flow Echocardiogram Patient Location: Out-Patient Client Consultant: Jacqueline Valle RDCS (AE) Indications: Encounter for monitoring cardiotoxic drug therapy Other Information Study Quality: Adequate. Technically limited study due to body habitus patient is thin. Conclusion Normal left ventricular wall thickness and chamber size. Ejection fraction is 55 to 60%. Wall motion is normal Normal right ventricular size and function Both atria are normal in size Mitral leaflets are minimally elongated. There is very mild systolic mitral valve prolapse and trace mitral regurgitation Trileaflet aortic valve with trace regurgitation Wall motion Left Ventricle The left ventricle is normal size. The left ventricular systolic function is normal. The left ventricular ejection fraction is within the normal range. There is normal left ventricular wall thickness. There is normal LV segmental wall motion. There is no ventricular septal defect visualized. LVEF is 55%. Right Ventricle The right ventricle is normal size. The right ventricular systolic function is normal. Atria The left atrium size is normal. The right atrium size is normal. The interatrial septum is intact with no evidence for an atrial septal defect. Aortic Valve The aortic valve is normal in structure. Aortic valve is trileaflet. There is no aortic valvular stenosis. Trace aortic regurgitation. Mitral Valve No evidence of mitral valve stenosis. Trace mitral regurgitation. Mild mitral valve prolapse. Tricuspid Valve The tricuspid valve is normal in structure. There is no tricuspid valve stenosis. Trace tricuspid regurgitation. Pulmonic Valve The pulmonary valve is normal in structure. There is no pulmonic valvular stenosis. Trace pulmonic regurgitation. Great Vessels The aortic root is normal in size. Ascending aorta is not well visualized. Aortic arch is normal in caliber. IVC is normal in size and collapses >50% with inspiration. Pericardium There is no pericardial effusion. 2D Dimensions IVSD d PLAX 0.70 cm F: 0.6-1.0 Ao Root d 2.85 cm F: 2.7 - 3.3 LVPW d PLAX 0.72 cm F: 0.6 - 1.0 LVID d PLAX 4.31 cm F: 3.8 - 5.2 LVDs 3.12 cm F: 2.2 - 3.5 LV EF Teichholz 53.6 % FS 27.45 % LV EDV (Teich) 83.4 mL LV ESV (Teich) 38.7 mL M-Mode TAPSE 1.81 cm (M/F) >1.7 Auto EF LV EDV A4C 89.1 mL LV EDV A2C 94.4 mL LV EDV BP 89.1 mL LV ESV A4C 43.3 mL LV ESV A2C 46.1 mL LV ESV BP 46.5 mL LVEF(%) A4C 51.3 % LVEF(%) A2C 51.1 % LVEF(%) BP 47.8 % LV SV A4C 45.7 ml LV SV A2C 48.3 ml LV SV BP 42.6 ml LV CO A4C 2.6 L/min LV CO A2C 2.5 L/min LV CO BP 2.3 L/min HR A4C 56.16 BPM HR A2C 51.28 BPM LV EDV Index (BP) LV Strain Long Pk Overal Avg (s) 15.67 LA Volume LA Length A4C 4.0 cm LA Length A2C 2.8 cm LA Area A4C s 10.02 cm2 LA Area A2C s 6.60 cm2 LA Vol A4C A-L 21.20 mL LA Vol A2C A-L 13.10 mL LA Vol Biplane A-L 19.9 mL LA Vol/BSA A4C A-L LA Vol/BSA A2C A-L LA Vol/BSA BP A-L 15.2 mL/m2 LA Vol A4C MOD 18.9 mL LA Vol A2C MOD 10.9 mL LA Vol BP MOD 17.0 mL LV Diastology MV E' medial 0.113 (>0.07 m/s) MV E Vmax 0.70 (0.4-1.3 m/s) MV E/E' MED 6.21 (<14) MV A Vmax 0.55 (0.4-1.3 m/s) MV E' lateral 0.118 (>0.1 m/s) E/A Ratio 1.3 MV E/E' LAT 5.98 (<14) MV E' Average 0.116 m/s MV E/E'(average) 6.09 Aortic Valve AoV Vmax 1.39 m/s LVOT Vmax 1.09 m/s AoV Peak Grad 38.3 mmHg LVOT Peak Grad 4.8 mmHg AoV Area (Vmax) 1.72 cm2 LVOT VTI 0.233 m AoV VTI 0.322 m LVOT Mean Grad 2.7 mmHg AoV Mean Ottoniel. 0.95 m/s LVOT SV 51.14 mL AoV Mean Grad 4.1 mmHg LVOT Diam s 1.65 cm AoV Area (VTI) 1.59 cm2 AV Regurg Peak Gr. 7.74 mmHg Velocity Ratio 0.78 AR Decel [place] 1.3m/sec2 AR DT 3228 msec AR PHT 936 msec AR Vmax 4.15 m/s Mitral Valve MV DT 191 (160-240 msec) MV Vmax TIPS 0.63 m/s MV Mean Grad 0.5 (<2mmHg) MV VTI 0.194 m Pulmonary Valve PV Vmax 1.03 (0.5-1.5 m/s) RVOT Vmax 0.91 m/s PV Peak Grad 4.3 mmHg RVOT Peak Gr. 3.3 mmHg PV Mean Ottoniel 0.75 m/s RVOT VTI 0.229 m PV Mean Grad 2.5 mmHg RVOT Mean Gr. 1.9 mmHg Tricuspid Valve RA Pressure 3.00 mmHg TR Vmax 2.76 m/s TV S' 0.12 m/s TR Peak Grad 30.3 mmHg RVSP (TR) 33.4 mmHg
== END 2025-04-28 02:48 ==
LOC: DI 02:28
PROVIDERS: PCP Nurse Practitioner; Visit Provider Internal Medicine Cardiovascular Disease
DX: Z51.81 Encounter for therapeutic drug level monitoring (principal); I34.1 Nonrheumatic mitral (valve) prolapse
CPT/HCPCS: 93306

== ENCOUNTER 2025-05-15 00:52 | Outpatient (RCR) | payer OTHER, SELFPAY ==
[2025-05-15] MEDS: Normal Saline Flush 10 ML SYR IVP (10:51)
[2025-05-15 10:54] LABS: Abs Immature Grans 0.01 10^3/uL (0.0-0.06); HCT 33.0 % (36.0-46.0); HGB 11.1 g/dL (11.2-15.7); Immature Grans % 0.3 %; MCH 31.1 pg (27.0-33.0); MCHC 33.6 % (32.0-36.0); MCV 92 fL (80-95); MPV 9.8 fL (8.0-11.0); Platelet Count 189 10^3/uL (130-400); RBC 3.57 10^6/uL (3.93-5.22); RDW 11.9 % (11.7-14.6); RDW-SD 40.2 fL; WBC 3.28 10^3/uL (4.4-10.8)
[2025-05-15 11:15] LABS: ALT 46 U/L (14-59); AST 23 U/L (15-37); Albumin 3.6 g/dL (3.4-5.0); Alkaline Phosphatase 73 U/L (46-116); Anion Gap 7.1 mmol/L (3-11); BUN 13 mg/dL (7-18); Bilirubin, Total 0.7 mg/dL (0.2-1.0); CO2 29.9 mmol/L (21.0-32.0); Calcium 9.2 mg/dL (8.5-10.1); Chloride 105 mmol/L (98-107); Estimated GFR 102.07 (mL/min/1.73m2); Glucose 94 mg/dL (74-106); Potassium 4.2 mmol/L (3.5-5.1); Sodium 142 mmol/L (136-145); Total Protein 6.9 g/dL (6.4-8.2)
== END 2025-06-04 23:59 | disposition home or self-care (01) ==
LOC: INF 00:52
PROVIDERS: PCP Nurse Practitioner; Visit Provider Nurse Practitioner Family
DX: C50.911 Malignant neoplasm of unspecified site of right female breast (principal); Z45.2 Encounter for adjustment and management of vascular access device
CPT/HCPCS: 36591; 80053; 85025

== ENCOUNTER → 2025-09-04 03:34 | Outpatient (CLI) | payer OTHER, SELFPAY ==
--- NOTE | 2025-09-04 14:30 | DI.US_ITS ---
APPROVED REPORT EXAM: Comprehensive 2D, Doppler, and color-flow Echocardiogram Patient Location: Out-Patient Helper Coordinator: Brock Hall RDCS (AE) Indications: High risk medication use, stage 2 breast cancer Other Information Study Quality: Adequate Conclusion Normal left ventricular wall thickness and chamber size. Ejection fraction is 60%. Wall motion is normal Normal right ventricular size and function Both atria are normal in size There are no structural valvular abnormalities Mild aortic, mitral, and tricuspid regurgitation Normal estimated right ventricular systolic pressure 24 mmHg Wall motion Left Ventricle The left ventricle is normal size. Left ventricular systolic function is normal. The left ventricular ejection fraction is within the normal range. There is normal left ventricular wall thickness. There is normal LV segmental wall motion. There is no ventricular septal defect visualized. LVEF is 60%. Right Ventricle The right ventricle is normal size. The right ventricular systolic function is normal. Atria The left atrium size is normal. The right atrium size is normal. Interatrial septum is intact without evidence of ASD or PFO. Aortic Valve The aortic valve is normal in structure. There is no aortic valvular stenosis. Mild aortic regurgitation. Mitral Valve The mitral valve is normal in structure. No evidence of mitral valve stenosis. Mild mitral regurgitation. Tricuspid Valve The tricuspid valve is normal in structure. There is no tricuspid valve stenosis. Mild tricuspid regurgitation. The RVSP is 24.0 mmHg. Pulmonic Valve The pulmonary valve is normal in structure. There is no pulmonic valvular stenosis. There is no pulmonic valvular regurgitation. Great Vessels The aortic root is normal in size. Ascending aorta is not well visualized. Aortic arch is normal in caliber. IVC is normal in size and collapses >50% with inspiration. Pericardium Trace pericardial effusion. 2D Dimensions IVSD d PLAX 0.67 cm F: 0.6-1.0 Ao Root d 2.32 cm F: 2.7 - 3.3 LVPW d PLAX 0.68 cm F: 0.6 - 1.0 LVID d PLAX 4.58 cm F: 3.8 - 5.2 LVDs 3.05 cm F: 2.2 - 3.5 LV EF Teichholz 62.2 % FS 33.39 % LV EDV (Teich) 96.5 mL LV ESV (Teich) 36.5 mL Stroke Vol Index (Teich) 45.42 M-Mode TAPSE 2.49 cm (M/F) >1.7 Auto EF LV EDV A4C 64.4 mL LV EDV A2C 75.3 mL LV EDV BP LV ESV A4C 25.8 mL LV ESV A2C 32.0 mL LV ESV BP LVEF(%) A4C 59.9 % LVEF(%) A2C 57.5 % LVEF(%) BP LV SV A4C 38.6 ml LV SV A2C 43.3 ml LV SV BP LV CO A4C 2.3 L/min LV CO A2C 2.8 L/min LV CO BP HR A4C 60.10 BPM HR A2C 65.70 BPM LV EDV Index (BP) LV Strain Long Pk Overal Avg (s) 18.80 LA Volume LA Length A4C 3.1 cm LA Length A2C 3.8 cm LA Area A4C s 8.80 cm2 LA Area A2C s 6.84 cm2 LA Vol A4C A-L 21.55 mL LA Vol A2C A-L 10.35 mL LA Vol Biplane A-L 16.7 mL LA Vol/BSA A4C A-L LA Vol/BSA A2C A-L LA Vol/BSA BP A-L 12.7 mL/m2 LA Vol A4C MOD 20.4 mL LA Vol A2C MOD 9.4 mL LA Vol BP MOD 15.4 mL RA Volume RA Area A4C 8.2 cm2 RA ESV A4C (A-L) 16.5mL RA Vol/BSA A4C A-L RA Length A4C 3.5 cm RA ESV A4C (MOD) 15.8mL LV Diastology MV E' medial 0.110 (>0.07 m/s) MV E Vmax 0.63 (0.4-1.3 m/s) MV E/E' MED 5.74 (<14) MV A Vmax 0.45 (0.4-1.3 m/s) MV E' lateral 0.131 (>0.1 m/s) E/A Ratio 1.4 MV E/E' LAT 4.84 (<14) MV E' Average 0.120 m/s MV E/E'(average) 5.25 Aortic Valve AoV Vmax 1.38 m/s LVOT Vmax 1.02 m/s AoV Peak Grad 7.6 mmHg LVOT Peak Grad 4.2 mmHg AoV Area (Vmax) 1.79 cm2 LVOT VTI 0.205 m AoV VTI 0.244 m LVOT Mean Grad 2.3 mmHg AoV Mean Ottoniel. 0.93 m/s LVOT SV 49.37 mL AoV Mean Grad 3.9 mmHg LVOT Diam s 1.75 cm AoV Area (VTI) 2.02 cm2 AV Regurg Peak Gr. 7.58 mmHg Velocity Ratio 0.74 Mitral Valve MV DT 187 (160-240 msec) Pulmonary Valve PV Vmax 1.00 (0.5-1.5 m/s) RVOT Vmax 1.05 m/s PV Peak Grad 4.0 mmHg RVOT Peak Gr. 4.4 mmHg PV Mean Ottoniel 0.71 m/s RVOT VTI 0.232 m PV Mean Grad 2.2 mmHg RVOT Mean Gr. 2.4 mmHg Tricuspid Valve RA Pressure 3.00 mmHg TR Vmax 2.29 m/s TR Peak Grad 20.9 mmHg RVSP (TR) 24.0 mmHg
== END ==
LOC: DI 03:35
PROVIDERS: PCP Nurse Practitioner; Visit Provider Nurse Practitioner Family
DX: C50.911 Malignant neoplasm of unspecified site of right female breast (principal); Z79.899 Other long term (current) drug therapy; I08.3 Combined rheumatic disorders of mitral, aortic and tricuspid valves
CPT/HCPCS: 93306

== ENCOUNTER 2025-09-11 02:53 | Outpatient (CLI) | payer OTHER, SELFPAY ==
[2025-09-11 09:42] LABS: Abs Immature Grans 0.00 10^3/uL (0.0-0.06); HCT 35.3 % (36.0-46.0); HGB 11.7 g/dL (11.2-15.7); Immature Grans % 0.0 %; MCH 30.8 pg (27.0-33.0); MCHC 33.1 % (32.0-36.0); MCV 93 fL (80-95); MPV 9.2 fL (8.0-11.0); Platelet Count 171 10^3/uL (130-400); RBC 3.80 10^6/uL (3.93-5.22); RDW 12.2 % (11.7-14.6); RDW-SD 41.6 fL; WBC 2.91 10^3/uL (4.4-10.8)
[2025-09-11 09:56] LABS: ALT 36 U/L (14-59); AST 17 U/L (15-37); Albumin 3.6 g/dL (3.4-5.0); Alkaline Phosphatase 69 U/L (46-116); Anion Gap 7.3 mmol/L (3-11); BUN 18 mg/dL (7-18); Bilirubin, Total 0.8 mg/dL (0.2-1.0); CO2 30.7 mmol/L (21.0-32.0); Calcium 9.1 mg/dL (8.5-10.1); Chloride 104 mmol/L (98-107); Glucose 59 mg/dL (74-106); Magnesium 2.1 mg/dL (1.8-2.4); Potassium 3.8 mmol/L (3.5-5.1); Sodium 142 mmol/L (136-145); Total Protein 7.2 g/dL (6.4-8.2)
== END 2025-09-11 02:54 | disposition home or self-care (01) ==
PROVIDERS: PCP Nurse Practitioner; Visit Provider Nurse Practitioner Family
DX: Z79.899 Other long term (current) drug therapy (principal); Z85.3 Personal history of malignant neoplasm of breast
CPT/HCPCS: 36415; 80053; 83735; 85025